=== PATIENT | female | born 1945 | race Caucasian/White ===

== ENCOUNTER 2017-08-25 18:47 | Emergency (ER) | payer OTHER ==
[~2017-08-25] VITALS: Ht 157.5 cm; Wt 84.5 kg
[2017-08-25 18:51] VITALS: Ht 157.5 cm; Wt 84.5 kg
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
[2017-08-25] MEDS ORDERED: IBUPROFEN 200 MG TAB PO ONE (20:30)
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
[2017-08-25] MEDS ORDERED: NAPR-260 PO (23:11)
[2017-08-25] MEDS ORDERED: FAMO-96 PO (23:12)
[2017-08-25 23:42] VITALS: BP 138/80; PULSE 65; RESP 18; TEMP 98.6
== END 2017-08-25 23:42 | disposition home or self-care (01) ==
LOC: FTE 18:47
DX: M19.012 Primary osteoarthritis, left shoulder (principal); R07.81 Pleurodynia
CPT/HCPCS: 71010; 71100; 93005